=== PATIENT | male | born 1960 | race Caucasian/White ===

== ENCOUNTER 2020-11-26 19:39 | Emergency (ER) | payer BC ==
--- NOTE | 2020-11-26 20:41 | EDM.PDOC ---
ED HPI GENERAL MEDICAL PROBLEM - General Chief Complaint: General Stated Complaint: L JAW PAIN/SWELLING Time Seen by Provider: 11/26/20 20:27 Source of Information: Reports: Patient History Limitations: Reports: No Limitations - History of Present Illness INITIAL COMMENTS - FREE TEXT/NARRATIVE: Erik is a 60-year-old male presenting to the ED with acute onset of gland swelling and pain that started yesterday. The patient has not any fever or chills, significant pain with chewing until this evening when he was at dinner and just before starting to eat the area started to become quite swollen and tender. The first time he bit down there was a sudden release of intense pain and the size of the parotid gland went down. It is likely that he passed a stone from the parotid duct as the swelling is continue to improve but the area is still quite tender. I am able to express a scant amount of purulent discharge from the duct with significant palpation of the gland. Early there is not enough there to culture. - Related Data Allergies Allergy/AdvReac Type Severity Reaction Status Date / Time No Known Allergies Allergy Verified 11/26/20 20:36 ED ROS GENERAL - Review of Systems Review Of Systems: See Below Constitutional: Reports: No Symptoms HEENT: Reports: Other (Swelling of the left parotid gland and pain with chewing this started this evening) Respiratory: Reports: No Symptoms Cardiovascular: Reports: No Symptoms Endocrine: Reports: No Symptoms GI/Abdominal: Reports: No Symptoms ED EXAM, GENERAL - Physical Exam Exam: See Below Exam Limited By: No Limitations General Appearance: Alert, No Apparent Distress Throat/Mouth: Normal Inspection, Normal Oropharynx, Normal Voice, No Airway Compromise Head: Facial Swelling (Swelling over the left parotid gland and firmness with palpation of the gland), Facial Tenderness (Tenderness with palpation of the gland. I am able to express a small amount of purulent material from the duct with manipulation of the left parotid gland) Neck: Normal Inspection, Supple Respiratory/Chest: No Respiratory Distress Course - Vital Signs Last Recorded V/S: Last Vital Signs Temp 36.6 C 11/26/20 20:32 Pulse 70 11/26/20 20:32 Resp 18 11/26/20 20:32 BP 180/82 H 11/26/20 20:32 Pulse Ox 100 11/26/20 20:32 - Re-Assessments/Exams Free Text/Narrative Re-Assessment/Exam: 11/26/20 20:39 Patient has significant tenderness and swelling of the left parotid gland which is improved since he was chewing at dinner tonight. The patient had a sudden release of both the size of the gland and also the pressure which is suspicious for passing a parotid gland stone through the duct. We will put the patient on clindamycin 300 mg 4 times daily for 7 days to treat parotitis. I did express to the patient the significance of recurrence and the swelling and the severity of the infection getting into the deep tissues. At this time I do not feel that he requires inpatient hospitalization or IV antibiotics, however, should this recur or worsen that would certainly be the next approach I would take. Patient is aware of this and is in agreement with the plan. Departure - Departure Time of Disposition: 20:41 Disposition: Home, Self-Care 01 Clinical Impression: Acute parotitis, Calculus of parotid gland duct - Discharge Information Instructions: Parotitis Referrals: Marsha Brown PA-C [Primary Care Provider] - Care Plan Goals: I do recommend picking up lemon heads or sweet tarts or some type of very tart candy to increase saliva production and help push the stone if it has not already fully passed. We are starting you on a potent antibiotic called clindamycin which she will be taking 2 capsules 4 times a day for the next 7 days. Should you have any significant worsening in your symptoms return immediately to the ER for reevaluation as these infections become quite serious when they get into the deep tissues in the head and neck and may require hospitalization and even surgery. I do not feel there were at that point currently. Applying warm packs or warm washcloth compress to the face will also help alleviate some of the symptoms and increase blood flow to the area to help clear the infection. Sepsis Event Note (ED) - Evaluation Sepsis Screening Result: No Definite Risk - Focused Exam Vital Signs: Vital Signs Temp Pulse Resp BP Pulse Ox 11/26/20 20:32 36.6 C 70 18 180/82 H 100 11/26/20 20:08 36.6 C 70 18 180/82 H 100 - Problem List & Annotations (1) Acute parotitis SNOMED Code(s): 29781684, 61447494 Code(s): K11.21 - ACUTE SIALOADENITIS Status: Acute Current Visit: Yes (2) Calculus of parotid gland duct SNOMED Code(s): 584847198 Code(s): K11.5 - SIALOLITHIASIS Status: Acute Current Visit: Yes - Problem List Review Problem List Initiated/Reviewed/Updated: Yes
== END 2020-11-26 20:56 | disposition home or self-care (01) ==
LOC: JP.ED 19:39
DX: K11.5 Sialolithiasis (principal); K11.21 Acute sialoadenitis
CPT/HCPCS: 99283

== ENCOUNTER 2021-04-01 09:19 | Day surgery (SDC) | payer BC ==
[2021-04-01] MEDS ORDERED: Propofol 200 MG/20 ML SDV ONE (09:34)
[2021-04-01] MEDS ORDERED: fentaNYL 100 MCG/2 ML SDV ONE (09:34)
[2021-04-01] MEDS ORDERED: Midazolam 1 MG/ML 2 ML SDV ONE (09:34)
[2021-04-01] MEDS ORDERED: Sodium Chloride 0.9% 1,000 ML IV SCH (10:00)
--- NOTE | 2021-04-01 14:57 | OR ---
DATE OF PROCEDURE: 04/01/2021 SURGEON: Karsten Edmond MD PROCEDURE: Colonoscopy. FINDINGS: Normal colonoscopy. COMPLICATIONS: None. INTEGRATION ANALYST: None. ANESTHESIA: MAC. PREOPERATIVE DIAGNOSIS: Screening colonoscopy. POSTOPERATIVE DIAGNOSIS: Screening colonoscopy. RISKS: Risks, benefits, alternatives, and limitations including, but not limited to infection, bleeding, perforation, false positives and false negatives were explained to the patient and he wished to proceed. PROCEDURE IN DETAIL: The patient was placed in left lateral decubitus position. Digital rectal exam was performed without abnormality. Scope was introduced and advanced atraumatically to the ileocecal valve. A photo was taken of this. Scope was brought back to the ascending, transverse, descending colon, and retroflexed. No evidence of old or new blood. No masses. No polyps. No colitis. Greater than 8 minutes was spent removing the scope. The prep was acceptable, approximately 90% of the luminal surface could be seen. Karsten Edmond MD /[id number]
== END 2021-04-01 12:35 | disposition home or self-care (01) ==
LOC: JP.SDS 09:19
PROVIDERS: ATTEND Surgery
DX: Z12.11 Encounter for screening for malignant neoplasm of colon (principal); I10 Essential (primary) hypertension
CPT/HCPCS: 45378; J2250; J2704; J3010; J7030